=== PATIENT | female | born 1990 | race Caucasian/White ===

== ENCOUNTER 2020-03-21 18:44 | Emergency (ER) | payer MEDICAID ==
[2020-03-21] MEDS ORDERED: KETOROLAC TROMETHAMINE INJ/PF 30 MG/1 ML SDV IV ONE (19:57)
[2020-03-21] MEDS ORDERED: HYDROMORPHONE HCL INJ/PF 2 MG/ML AMPULE IV ONE (19:57)
--- NOTE | 2020-03-21 20:01 | ER Document Report ---
ED General - General Chief Complaint: Flank Pain Stated Complaint: RIGHT FLANK PAIN Notes: Patient is a 30-year-old white female with a history of kidney stone on the [facility] in the past that was 9 mm who underwent lithotripsy who presents to the emergency department with chief complaint of right flank pain that began this morning. She states this feels exactly like her prior kidney stone. She states the pain originates in the right back and does not radiate. States is associated with some mild nausea. She denies any vaginal bleeding or discharge. Denies any urinary complaints. Denies any abdominal pain, chest pain or shortness of breath. She did recently travel here [place] She states he has been not ill and under quarantine prophylactically. She does not mention any fever but of note her vitals shows some elevated temperature of 103. No specific provocative or palliative factors. Pain is been constant. Patient is status post cholecystectomy - Related Data Allergies/Adverse Reactions: cephalexin [From Keflex] Allergy (Verified 03/21/20 19:16) Past Medical History - Social History Smoking Status: Unknown if Ever Smoked Family History: Reviewed & Not Pertinent Past Surgical History: Reports: Hx Kidney (Renal Surgery) - lithotripsy, Hx Tonsillectomy, Hx Tubal Ligation Review of Systems - Review of Systems Constitutional: Fever EENT: denies: Throat pain Cardiovascular: denies: Chest pain Respiratory: denies: Short of breath Gastrointestinal: Nausea. denies: Abdominal pain Genitourinary: Flank pain. denies: Burning, Dysuria, Discharge Female Genitourinary: denies: , Irregular period, Vaginal discharge Musculoskeletal: Back pain Skin: denies: Change in color Hematologic/Lymphatic: denies: Easy bleeding Neurological/Psychological: denies: Headaches Physical Exam - Vital signs Vitals: Temp Pulse Resp BP Pulse Ox 103.1 F H 97 16 123/64 97 03/21/20 18:49 03/21/20 18:49 03/21/20 18:49 03/21/20 18:49 03/21/20 18:49 - General General appearance: Appears well, Alert In distress: None - Respiratory Respiratory status: No respiratory distress Chest status: Nontender Breath sounds: Normal Chest palpation: Normal - Cardiovascular Rhythm: Regular Heart sounds: Normal auscultation - Abdominal Inspection: Normal Distension: No distension Bowel sounds: Normal Tenderness: Tender - Slight tenderness right upper quadrant but patient reports feeling it in the same area of her back Organomegaly: No organomegaly Notes: Negative obturator and psoas. No evidence of peritonitis - Back Back: CVA tenderness - Right-sided CVA tenderness - Neurological Neuro grossly intact: Yes Cognition: Normal Orientation: AAOx4 - Psychological Associated symptoms: Normal affect, Normal mood - Skin Skin Temperature: Warm Skin Moisture: Dry Skin Color: Normal Course - Re-evaluation Re-evalutation: 03/21/20 22:34 Patient get a 7.8 mm stone in ureter with some mild hydronephrosis and lower p ole stones nonobstructive. She also has a significant urinary tract infection. Given Bactrim IV here. Given a short course of [place] for the night and for tomorrow. We will send a prescription of pain medications, Flomax and Bactrim to her pharmacy. She is from out of town, has a urologist back home she will call tomorrow for appointment for when she returns home. Counseled her at length regarding the importance of outpatient follow-up and advised she return here or any ER immediately with any new, persistent or worsening symptoms. She verbalized understood and agreed. - Vital Signs Vital signs: Temp Pulse Resp BP Pulse Ox 99.0 F 97 16 123/64 97 03/21/20 22:11 03/21/20 18:49 03/21/20 18:49 03/21/20 18:49 03/21/20 18:49 - Laboratory Result Diagrams: 03/21/20 19:09 03/21/20 19:09 Laboratory results interpreted by me: 03/21/20 03/21/20 03/21/20 19:09 19:09 20:36 WBC 11.8 H Seg Neuts % (Manual) 93 H Lymphocytes % (Manual) 5 L Monocytes % (Manual) 2 L Abs Neuts (Manual) 11.0 H Sodium 132.9 L Potassium 3.4 L Glucose 125 H Urine Protein 100 H Urine Ketones TRACE H Urine Blood SMALL H Urine Nitrite (Reflex) POSITIVE H Leukocyte Esterase Rfl LARGE H Discharge - Discharge Clinical Impression: Ureteral stone, Renal colic Hydronephrosis Qualifiers: Hydronephrosis type: unspecified Qualified Code(s): N13.30 - Unspecified hydro nephrosis UTI (urinary tract infection) Qualifiers: Urinary tract infection type: site unspecified Hematuria presence: with hematuria Qualified Code(s): N39.0 - Urinary tract infection, site not specified Condition: Stable Disposition: HOME, SELF-CARE Instructions: Kidney Stone ([facility]), Trimethoprim-Sulfa ([facility]), Urinary Tract Infection ([facility]) Additional Instructions: Follow-up with your urologist as soon as possible. Please return here any ER immediately with any new, persistent or worsening symptoms. Prescriptions: Sulfamethoxazole/Trimethoprim [Bactrim Ds Tablet] 1 each PO BID #20 tablet Tamsulosin HCl [Flomax 0.4 mg Cap.sr] 0.4 mg PO DAILY #7 cap.sr.24h Hydrocodone/Acetaminophen [[place] 10-325 mg Tablet] 1 tab PO Q6 PRN #12 tablet PRN Reason:
[2020-03-21 20:52] LABS: HEMATOCRIT 39.7 % (36.0-47.0); HEMOGLOBIN 14.1 g/dL (12.0-15.5); MEAN CORPUSCULAR HGB CONC 35.6 g/dL (32.0-36.0); MEAN CORPUSCULAR VOLUME 87 fl (80-97); PLATELET COUNT 226 10^3/uL (150-450); RED BLOOD COUNT 4.55 10^6/uL (3.72-5.28); RED CELL DISTRIBUTION WIDTH 12.8 % (11.5-14.0); WHITE BLOOD COUNT 11.8 10^3/uL (4.0-10.5)
[2020-03-21 21:07] LABS: APPEARANCE,URINE CLOUDY; BILIRUBIN,URINE NEGATIVE (NEGATIVE); COLOR,URINE YELLOW; GLUCOSE, URINE NEGATIVE (NEGATIVE); KETONES,URINE TRACE mg/dL (NEGATIVE); PROTEIN,URINE 100 mg/dL (NEGATIVE); URINE SPECIFIC GRAVITY 1.021; UROBILINOGEN,URINE NEGATIVE mg/dL (<2.0)
[2020-03-21 21:15] LABS: ALBUMIN 4.2 g/dL (3.5-5.0); ALKALINE PHOSPHATASE 52 U/L (38-126); ANION GAP 8 (5-19); ASPARTATE AMINO TRANSFERASE 19 U/L (14-36); BILIRUBIN,TOTAL 1.3 mg/dL (0.2-1.3); BLOOD UREA NITROGEN 13 mg/dL (7-20); CALCIUM 9.3 mg/dL (8.4-10.2); CARBON DIOXIDE 24 mmol/L (22-30); CHLORIDE 101 mmol/L (98-107); GLUCOSE 125 mg/dL (75-110); POTASSIUM 3.4 mmol/L (3.6-5.0); TOTAL PROTEIN 6.6 g/dL (6.3-8.2)
[2020-03-21 21:17] LABS: ABSOLUTE LYMPHOCYTES# (MANUAL) 0.6 10^3/uL (0.5-4.7); ABSOLUTE MONOCYTES # (MANUAL) 0.2 10^3/uL (0.1-1.4); BASOPHILS % (MANUAL) 0 % (0-2); EOSINOPHILS % (MANUAL) 0 % (0-6); LYMPHOCYTES % (MANUAL) 5 % (13-45); MONOCYTES % (MANUAL) 2 % (3-13); SEGMENTED NEUTROPHILS % (MAN) 93 % (42-78); TOTAL CELLS COUNTED 100
[2020-03-21 21:18] LABS: PLATELET COMMENT ADEQUATE; RBC MORPHOLOGY COMMENT NORMO-CYTIC/CHROMIC; TOXIC GRANULATION SLIGHT
--- NOTE | 2020-03-21 22:21 | RADIOLOGY REPORT (SQ) ---
EXAM DESCRIPTION: CT ABDOMEN PELVIS WITHOUT IV CONTRAST COMPLETED DATE/TME: 03/21/2020 19:56 CLINICAL HISTORY: 30 years, Female, R flank pain COMPARISON: None. TECHNIQUE: 280 Images stored on PACS. All CT scanners at this facility use dose modulation, iterative reconstruction, and/or weight based dosing when appropriate to reduce radiation dose to as low as reasonably achievable (ALARA). [facility]: Dose Right [facility]: CareDose [facility]: Dose Right [facility]: Teradose 4D [facility]: Capigami LIMITATIONS: None. FINDINGS: The visualized lung bases are unremarkable. Osseous structures are grossly intact. The liver, spleen, adrenal glands, pancreas, left kidney are unremarkable. Status post cholecystectomy. Nonobstructing calculi in the inferior pole the right kidney. In addition there is mild right hydronephrosis secondary to a 7.8 mm proximal right ureteral/right UPJ calculus. No gross evidence for bowel obstruction. Large amount of stool in the colon. Normal appendix. No free air or free fluid. IMPRESSION: Mild right hydronephrosis secondary to a 7.8 mm right UPJ calculus. There is also nonobstructing calculi in the inferior pole the right kidney. Large amount of stool in the colon TECHNICAL DOCUMENTATION: Quality ID # [id number]: Final reports with documentation of one or more dose reduction techniques (e.g., Automated exposure control, adjustment of the mA and/or kV according to patient size, use of iterative reconstruction technique) copyright 2011 [employer]- All Rights Reserved
[2020-03-21] MEDS ORDERED: SULFAMETHOX/TRIMETH 800-160 MG/10 ML VIAL IV ONE (22:34)
[2020-03-21] MEDS ORDERED: HYDROCODONE/ACETAMINOPHEN 5-325 MG (6 TAB/ER DISP) PO PRN (22:34)
[2020-03-22] MEDS ORDERED: HYDROMORPHONE HCL INJ/PF 2 MG/ML AMPULE IV ONE (00:06)
[2020-03-22 02:16] VITALS: BP 120/71
== END 2020-03-22 02:14 | disposition home or self-care (01) ==
LOC: ER 18:44
DX: N20.1 Calculus of ureter (principal); N39.0 Urinary tract infection, site not specified; R10.9 Unspecified abdominal pain
CPT/HCPCS: 96376; 99284; 96375; 96365; 96366; 36415; 87086; 83690; 84703; 85025; 87088; 80053; 81001; 87186; 74176; J1885; J1170 ×2; J3490